=== PATIENT | male | born 1945 | race Caucasian/White ===

== ENCOUNTER 2017-02-08 06:36 | Day surgery (SDC) | payer MEDICARE ==
[2017-02-07 15:09] VITALS: BMI 25.4
[2017-02-08 08:15] LABS: #Basophils 0.1 thou/uL (0.0-0.2); #Eosinphils 0.5 thou/uL (0.0-0.7); #Lymphocytes 2.3 thou/uL (1.20-3.40); #Monocytes 1.4 thou/uL (0.11-0.59); #Neutrophils 6.3 thou/uL (1.40-6.50); %Basophils 1.3 % (0.0-1.0); %Eosinophils 4.6 % (0.0-10.0); %Lymphocytes 21.6 % (21.0-51.0); %Monocytes 12.9 % (0.0-10.0); Mean Platelet Volume 6.8 fL (7.4-10.4); Red Blood Cell (RBC) Count 4.93 mill/uL (4.70-6.10); White Blood Cell (WBC) Count 10.6 thou/uL (4.8-10.8)
[2017-02-08 08:22] LABS: Prothrombin Time 15.8 SEC (12.0-14.7)
[2017-02-08 08:23] LABS: PTT 36.1 SEC (22.9-36.1)
[2017-02-08] MEDS ORDERED: Diprivan 20 ML ONE (08:45)
[2017-02-08] MEDS ORDERED: Propofol 200 MG/20 ML VIAL ONE (09:01)
--- NOTE | 2017-02-08 17:51 | ECHO ---
DATE: 02/08/2017 INDICATION FOR PROCEDURE: This is a 71-year-old gentleman who is status post atrial fibrillation ab lation with pulmonary vein isolation. He has been taking Xarelto. He was advised to undergo a pearl sesophageal echocardiogram for evaluation of the flow in the left atrial appendage and also for any evidence of atrial abnormalities that might allow this gentleman be taken off of his oral anticoagul ation which has Xarelto. He was taken to the lab where he underwent short acting propofol anesthesia, the transesophageal pro be was easily passed down the distal esophagus. OVERALL IMPRESSION: 1. Normal left ventricular systolic function. Ejection fraction estimated at 55-60%. 2. Left atrial dilatation at 4.5 cm. 3. Moderate mitral valve regurgitation. 4. Mild tricuspid valve regurgitation. 5. Trace to mild aortic valve regurgitation. 6. Mild aortic valve sclerosis. 7. No evidence of left atrial or left atrial appendage thrombus and the E volume across the mitral valve was 0.63 meters per second velocity. The A velocity was 0.4 meters per second. The E:A ratio was 1.58. The left atrial appendage flow was 0.96 meters per second. The left atrial size 4.5 cm. There were no complications or difficulties encountered. IMPRESSION: Normal left ventricular systolic function with moderate mitral valve regurgitation, mil d tricuspid valve regurgitation, and good flow into the left atrial appendage with most likely suzan l left atrial contractility with moderate left atrial enlargement. POS: [facility]
--- NOTE | 2017-02-08 23:52 | DIS ---
He actually was seen as an outpatient on 02/08/2017 for the procedure. INDICATION FOR PROCEDURE: Admission to the outpatient facility was due to atrial fibrillation and h istory of pulmonary vein isolation ablation. He has done well since that time and he is being evalu ated to see whether or not his Xarelto can be discontinued. He was taken to the holding area where he underwent the procedure today. OTHER ADMITTING DIAGNOSES: Include hypertension, hypercholesterolemia. He has had a CVA in 04/2016 . He has glaucoma. He has had also chronic back problems. DISCHARGE DIAGNOSES: Include hypertension, hypercholesterolemia. He has had a CVA in 04/2016. He has glaucoma. He has had also chronic back problems. He remains in sinus rhythm. DISCHARGE MEDICATIONS: Same as the medications prior to the procedure. These include benazepril 20 mg q. day, Flonase inhaler or nasal spray each nostril once a day, latanoprost 0.005% ophthalmic dr ops, simvastatin 20 mg q.p.m., timolol ophthalmic drops 1 drop q. day, fish oil 1000 mg q. day, emily min D3 1000 units q. day, Xarelto 20 mg q. day, amlodipine 2.5 mg a day, metoprolol ER 25 mg q. day. It is quite possible when the patient sees the wraparound facilitator, they would stop his Xarelto. PROCEDURES IN HOSPITAL: Include a transesophageal echocardiogram. DISCHARGE FOLLOWUP: Follow up will be with me in about 4-6 weeks in the office. He will see as paty daniels followups with the wraparound facilitator. HOSPITAL COURSE: This is a very pleasant 71-year-old gentleman who underwent a pulmonary vein isola tion procedure for atrial fibrillation, has been doing well since that time. He has remained in sinu s rhythm. When he was seen in the office, he remained in sinus rhythm, somewhat bradycardic but in sinus rhythm. He has been followed by the wraparound facilitator and he was advised to undergo a trans esophageal echocardiogram to determine the flow in the left atrial appendage and also left atr ium as to determine whether or not he could possibly be taken off his oral anticoagulation in the fo rm of Xarelto. He did very well today during the procedure. His ejection fraction is normal. He d id have good flow in the left atrial appendage of 0.96 m/sec. The E:A ratio was 1.58 with an E velo city of 0.63 m/sec and the A velocity of 0.4 m/sec. At this time, most likely, he would be safe to discontinue the Xarelto, but I will leave this up to the discretion of the wraparound facilitator when they see the patient on their next visit. Otherwise, he tolerated the procedure well without diffic ulties or complications and he is ready for discharge today.
== END 2017-02-08 10:00 | disposition home or self-care (01) ==
LOC: CCL 06:36
PROVIDERS: ATTEND Internal Medicine Cardiovascular Disease
DX: I48.1 Persistent atrial fibrillation (principal); I10 Essential (primary) hypertension; E78.00 Pure hypercholesterolemia, unspecified; G89.29 Other chronic pain; Z88.8 Allergy status to other drugs, medicaments and biological substances; Z79.01 Long term (current) use of anticoagulants; Z96.643 Presence of artificial hip joint, bilateral; Z96.651 Presence of right artificial knee joint; Z86.73 Personal history of transient ischemic attack (TIA), and cerebral infarction without residual deficits
CPT/HCPCS: 85025; 85610; 85730; 93005; 93010; 93312; J2704

== ENCOUNTER 2017-10-30 12:03 | Inpatient (IN) | payer MEDICARE ==
[2017-10-30 14:05] LABS: Troponin I 0.011 ng/mL (< 0.028)
[2017-10-30 15:35] VITALS: BMI 23.8
[2017-10-30] MEDS ORDERED: hydrALAZINE 20 MG/ML VIAL SLOW IVP PRN (17:00)
[2017-10-30 19:59] LABS: Troponin I 0.029 ng/mL (< 0.028)
[2017-10-30] MEDS: Donepezil HCl 10 MG TAB PO SCH (21:22)
[2017-10-30] MEDS: Latanoprost 0.005% Ophth Soln 2.5 ml Bottle EA EYE SCH (21:22)
[2017-10-30] MEDS: Atorvastatin Calcium 10 MG TAB PO SCH (21:22)
[2017-10-30] MEDS: Brimonidine Tartrate 0.2% Ophth Soln 5 ml Bottle L EYE SCH (21:23)
[2017-10-30] MEDS: Timolol 0.25% Ophth Soln 5 ml Bottle L EYE SCH (21:23)
[2017-10-30] MEDS: Brimonidine Tartrate 0.2% Ophth Soln 5 ml Bottle R EYE SCH (21:24)
--- NOTE | 2017-10-31 00:21 | HP ---
DATE OF SERVICE: 10/30/2017 PRIMARY CARE PROVIDER: Dr. Lennon CHIEF COMPLAINT: "Heart rate in the 40s" HISTORY OF PRESENT ILLNESS: This is a 72-year-old male with history of dementia , hypertension, dyslipidemia, prior stroke in 2016, atrial fibrillation with history of ablation, generalized weakness, chronic hyponatremia, who presents to the emergency room due to a persistent heart rate in the 40s. All of the history is obtained from the patient's who reports she first noticed it on Tuesday, 2 days ago. Normally, his pulse is between 65 and 70. She stopped the metoprolol with his last dose three nights ago, and states that there has been no change in his heart rate which has remained in the 40s. No precipitating or relieving factors, and no prior history of bradycardia. The patient's only other medication change was the addition of Lexapro started on 10/21/2017, started for depression symptoms which include sleeping more, decreased appetite, and generally withdrawing. His notes that he has had some right facial drooping that is slight today, and some slurring of his speech yesterday. She has not noticed any other change in his behavior routine, states that he uses a walker and is generally weak and does not move around much. She has not seen any fevers, chills, nausea , vomiting, or change in voiding. The patient started out in [place], found to be in bradycardia with a rate in the 40s, transferred to the emergency room here and hospitalist called for admission. PAST MEDICAL HISTORY: 1. Atrial fibrillation with history of ablation. 2. History of stroke in 2016, with residual weakness. 3. Chronic hyponatremia. 4. Hypertension. 5. Dyslipidemia. 6. History of GI bleed, none recently, and has not been on aspirin since then. 7. Glaucoma and right eye blindness. PAST SURGICAL HISTORY: 1. Bilateral hip replacement. 2. Back surgery. 3. Right knee replacement. 4. Ablation. SOCIAL HISTORY: The patient lives with his , is his medical power of assistant city attorney and caregiver, he has not had alcohol in about 2 weeks and before that was having 3-4 beers per day. No tobacco. CODE STATUS: DNR - she confirms that he was clear on this wish. FAMILY HISTORY: Significant for cancer in multiple family members including breast cancer in mom. ALLERGIES: Are listed as ASPIRIN and patient's reports he was told this is an allergy and he should not take it. CURRENT MEDICATIONS: Reconciled with a list brought in by his ; 1. Metoprolol succinate 25 mg at bedtime. 2. Benazepril 20 mg daily. 3. Simvastatin 20 mg at bedtime. 4. Timolol 1 drop left eye b.i.d. 5. Brimonidine 1 drop each eye b.i.d. 6. Latanoprost 1 drop each eye at bedtime. 7. Donepezil 10 mg once a day. 8. Escitalopram 10 mg once a day. 9. Fish oil. 10. Vitamin D3. REVIEW OF SYSTEMS: From the patient, he reports "feeling yucky," but cannot describe it any further. He denies any pain. Denies any difference in his body. From his , she has not noticed any fevers, chills, nausea, vomiting or voiding changes. He occasionally does have incontinence of both bowel and bladder, states that is not new. Positive for change in appetite over the past 2 months, eating either not eating or 1-2 times per day. All remaining review of systems from the patient was attempted but uncertain of the reliability of the answers. PHYSICAL EXAMINATION: VITAL SIGNS: Blood pressure 164/84, pulse 48, respirations 14, saturations 96% on room air, temperature 98.6. GENERAL: He is awake, alert and responsive. He is not in apparent distress. HEENT: His right cornea is clouded. His left pupil is round. Extraocular movements are intact. Oral mucosa is pink, generally poor dentition. NECK: Supple, nontender. LYMPHATICS: No palpable cervical lymphadenopathy. VASCULAR: No audible carotid bruits. LUNGS: Clear to auscultation bilateral. No audible wheezing, rhonchi or rales. HEART: Normal S1, S2, regular rate and rhythm, no audible murmurs, he is bradycardic. ABDOMEN: Soft. Present bowel sounds. Nontender and nondistended. EXTREMITIES: No clubbing, cyanosis, or edema. SKIN: No visible rashes. NEUROLOGIC: Cranial nerves II-XII are intact. No facial droop noted by me, strength is equal and 5/5 in upper extremities and lower extremities. PSYCHIATRIC: Patient appears euthymic. He is oriented to person, but not to place, time or situation. LABORATORY DATA: 1. Reviewed. CBC, 7.6, 13.7, 41.2, 260. 2. Chemistry; 131, 4.5, 98, 23, 15, 0.74, 90. 3. Magnesium 2.7. 4. LFTs are normal except for a total bilirubin of 1.7. 5. Urinalysis 1.025, present protein, trace blood, but 0-3 red blood cells. 6. TSH 1.02. IMAGING DATA: 1. EKG shows a rate of 49, which appears junctional, possible very subtle sinus waves. 2. CT of the brain, stable atrophy and chronic white matter ischemic change without mass or bleed which is unchanged from 04/2016. IMPRESSION: 1. Bradycardia, uncertain if patient is symptomatic given the slurred speech and facial droop or if that is a separate issue. This is a new issue; patient has been off the beta caitie for now 3 days. 2. Speech change and facial droop as noticed by the patient's , with a history of stroke, history of atrial fibrillation, not on anticoagulation. 3. History of stroke with persistent weakness. 4. Chronic hyponatremia, appears stable. 5. Hypertension, not optimally controlled. 6. History of GI bleed, none recently, as well as reported ASPIRIN allergy. 7. Right eye blindness and glaucoma. 8. Elevated magnesium, uncertain significance, and mild. PLAN: 1. Admission to the hospital for Cardiology evaluation and monitoring of the heart rate off of beta caitie. 2. We will do a stroke workup for the patient with an MRI of the brain, to evaluate for infarct. The patient may require aspirin and discussed this with . We will see what the MRI shows. She is hesitant to start ASPIRIN given the report that he is allergic to this, from what I can best tell this was listed as an allergy due to a history of GI bleed. His reports he was on Xarelto for the atrial fibrillation, with his hse manager, Dr. Brock. This may need to be revisited based on his workup here. 3. We will continue his home medications with the exception of metoprolol, and we will hold the benazepril for now to allow for permissive hypertension in case of stroke. 4. We will consult the dietitian for recommendations on appetite. 5. Monitor sodium levels. 6. Deep venous thrombosis prophylaxis, pneumatic compression devices. 7. Gastrointestinal prophylaxis not indicated. The patient will be written for a diet. 8. Code status is DNR and this is confirmed with the patient's who states that he was very clear about this. 9. The duration of hospitalization will be dependent on Cardiology findings as well as the stroke workup. I reviewed the plan of care both with the patient and his . No questions or further needs at end of evaluation. Patient is at high risk given age, co- morbidities and current presentation. ERYN
[2017-10-31 05:21] LABS: Anion Gap 9 mmol/L (10-20); BUN (Urea Nitrogen) 12 mg/dL (8.4-25.7); Calc. Creatinine Clearance 120 mL/min (70-130); Calcium 8.5 mg/dL (7.8-10.44); Carbon Dioxide 26 mmol/L (23-31); Chloride 96 mmol/L (98-107); Cholesterol 108 mg/dl (< 200 Desired); Estimated GFR-MDRD Greater than 90; Glucose 84 mg/dL (83-110); HDL Cholesterol 36 mg/dL (>60 Neg Risk); LDL Cholesterol, Calculated 62 mg/dL; Potassium 4.1 mmol/L (3.5-5.1); Sodium 127 mmol/L (136-145); Triglycerides 48 mg/dL (Less than 150)
[2017-10-31] MEDS: Escitalopram Oxalate 10 mg Tablet PO SCH (09:19)
[2017-10-31] MEDS: Brimonidine Tartrate 0.2% Ophth Soln 5 ml Bottle L EYE SCH ×2 (09:20→20:09)
[2017-10-31] MEDS: Brimonidine Tartrate 0.2% Ophth Soln 5 ml Bottle R EYE SCH ×2 (09:20→20:10)
[2017-10-31] MEDS: Timolol 0.25% Ophth Soln 5 ml Bottle L EYE SCH ×2 (09:20→20:09)
--- NOTE | 2017-10-31 11:09 | PDOC.PN ---
- Subjective Encounter Start Date: 10/31/17 Encounter Start Time: 10:50 Subjective: f/u for ? symptomatic bradycardia and TIA r/o. Feels ok overall. Ambulated -: with PT using RW but felt weak. No CP, SOB. - Objective Resuscitation Status: Resuscitation Status DNR:Do Not Resuscitate MAR Reviewed: Yes Vital Signs & Weight: Vital Signs (12 hours) Temp Pulse Resp BP Pulse Ox 10/31/17 07:54 98 F 49 L 18 151/77 H 95 10/31/17 03:46 98 F 49 L 22 H 142/77 H 95 10/31/17 00:07 98.1 F 49 L 20 139/79 95 Weight Admit Weight 185 lb 12.8 oz Weight 185 lb 4.8 oz I&O: 10/30/17 10/31/17 11/01/17 06:59 06:59 06:59 Intake Total 670 Output Total 550 Balance 120 Result Diagrams: 10/31/17 04:35 Additional Labs: Laboratory Tests 04/20/16 04/21/16 10/30/17 08:54 05:21 10:17 Sodium 129 L 130 L 131 L Triglycerides Cholesterol LDL Cholesterol, Calc HDL Cholesterol 10/31/17 04:35 Sodium Triglycerides 48 Cholesterol 108 LDL Cholesterol, Calc 62 HDL Cholesterol 36 Radiology Reviewed by me: Yes (MRI brain - no acute changes) EKG Reviewed by me: Yes (Tele - Sinus bradycardia in low 50's) Phys Exam - Physical Examination Constitutional: NAD R cornea opacified HEENT: sclera anicteric, oral pharynx no lesions Neck: no nodes, no JVD, supple, full ROM Respiratory: no wheezing, no rales, no rhonchi, clear to auscultation bilateral S1, S2 Cardiovascular: RRR, no significant murmur, no rub, gallop Gastrointestinal: soft, non-tender, no distention, positive bowel sounds Musculoskeletal: no edema, pulses present Neurological: non-focal, normal sensation, moves all 4 limbs A x O x 1 to person Skin: no rash, normal turgor, cap refill <2 seconds Dx/Plan (1) Symptomatic bradycardia Code(s): R00.1 - BRADYCARDIA, UNSPECIFIED Status: Acute Comment: Suspected, plan for pacemaker insertion, continue telemetry monitoring, hold Metoprolol (2) Dysarthria Code(s): R47.1 - DYSARTHRIA AND ANARTHRIA Status: Acute Comment: ? chronic condition, MRI brain r/o acute CVA, follow clinically (3) Generalized weakness Code(s): R53.1 - WEAKNESS Status: Chronic Comment: PT for mobilization, ? home PT vs SNF (4) Chronic hyponatremia Code(s): E87.1 - HYPO-OSMOLALITY AND HYPONATREMIA Status: Chronic Comment: Appears near baseline levels, repeat Na+ in am (5) Atrial fibrillation, chronic Code(s): I48.2 - CHRONIC ATRIAL FIBRILLATION Status: Chronic Comment: Tele showing sinus bradycardia, s/p remote ablation (6) S/P ablation of atrial fibrillation Code(s): Z98.890 - OTHER SPECIFIED POSTPROCEDURAL STATES; Z86.79 - PERSONAL HISTORY OF OTHER DISEASES OF THE CIRCULATORY SYSTEM Status: Chronic - Plan plan discussed w/ family, PT/OT, social group worker, speech therapy, out of bed/ ambulate, DVT proph w/SCDs Stable overall -: Hold Metoprolol due to bradycardia -: Neurology consult pending -: Plan for Pacemaker insertion per Cardiology -: AM lab: BMP, CBC * Resume Zocor 20mg HS
--- NOTE | 2017-10-31 11:10 | CON ---
DATE OF CONSULTATION: 10/31/2017 HISTORY: Felipe Hoffman a 72-year-old white male who was initially evaluated by Dr. Brock in 10/2015. Prior to that, he had at least 3 episodes of syncope. EKG revealed atrial fibrillation. He was started on Xarelto. He had fast ventricular response and metoprolol 25 mg was added. He was placed on Multaq and in 12/2015 underwent transesophageal echo and cardioversion by Dr. Brock. There was no evidence of left atrial or left atrial appendage thrombus. Ejection fraction was 60-65%. With 200 joules, he returned to sinus rhythm. He had recurrence of his atrial fibrillation and on 04/15/2016 underwent ablation of his atrial fibrillation at [facility] by Dr. Ramírez Knox. Four days later he was admitted with mental status changes and elevated temperature. Brain MRI revealed an acute left cerebellar lacunar infarction. He had previously a Lexiscan Cardiolite test performed in the office. He had no evidence of reversible ischemia and normal wall motion. There was an area of decreased uptake in the inferoapical area felt to be due to diaphragmatic attenuation. In 05/2016 follow up in the office, he continued to remain in sinus rhythm. He has continued to maintain sinus rhythm and eventually underwent transesophageal echo in 01/[address] Brock to assess left atrial appendage flow. This was 0.96 meters per second, left atrial size of 4.5 cm. Ultimately, the decision was made to discontinue the Xarelto. That was the last time that he has been seen by Dr. Brock. He has been diagnosed with dementia according to the . He has not had any further falls or syncopal episodes. The monitors his heart rate very frequently and noted that it was in the low 40s and so she has held metoprolol for 3 days, but it continues to be in the low 40s at home. Also at times he will be complained of dizziness and lightheadedness. They came to the emergency room for further evaluation. He denied any chest discomfort or shortness of breath. PAST MEDICAL HISTORY: Hypertension, hypercholesterolemia, history of GI bleed on aspirin, glaucoma and right eye blindness, atrial fibrillation with ablation in 04/2016, a history of CVA 4 days after ablation with small left cerebellar lacunar infarct, dementia. OPERATIONS: Atrial fibrillation ablation, bilateral hip replacement, back surgery, right knee replacement. SOCIAL HISTORY: He does not smoke. He has several beers per day, but apparently has not had any in 2 weeks. FAMILY HISTORY: Negative for coronary artery disease. MEDICATIONS: At home include metoprolol 25 XL daily, which has been held for 3 days, benazepril 20 daily, Aricept 1 tablet daily, escitalopram oxalate 10 mg at bedtime, fish oil 1000 daily, simvastatin 20 at bedtime. ALLERGIES: ASPIRIN causes GI bleeding. It does not sound like he has a true aspirin allergy. REVIEW OF SYSTEMS: Twelve point review of systems otherwise unremarkable. PHYSICAL EXAMINATION: VITAL SIGNS: Blood pressure 151/77, pulse of 49. HEENT: PERRL. NECK: Supple. CHEST: Clear. CARDIAC: S1 and S2 are normal, without any S3, S4 or murmurs. Carotid upstrokes normal, without bruits. ABDOMEN: Normal bowel sounds, without tenderness or organomegaly. EXTREMITIES: Revealed no clubbing, cyanosis or edema. NEUROLOGIC: Grossly intact. LABORATORY DATA: EKG reveals probable junctional rhythm with heart rates in the mid 40s. This is in comparison with old EKGs that certainly show more of a distinct P wave than is present on current EKGs. Brain CT reveals stable atrophy and chronic white matter ischemic changes. Hemoglobin 13.7, hematocrit 41.2, white count 7600, platelets 260,000. INR 1.0. Sodium 127, potassium 4.1, chloride 96, carbon dioxide 26, BUN 12, creatinine 0.64. Troponin I has been normal except for the last one 0.029, cholesterol 108, triglycerides 48, HDL 36, LDL 62. TSH is normal. IMPRESSION: 1. Severe sinus bradycardia and possible junctional bradycardia at the present time. His states that he complains of dizziness frequently. 2. Slurred speech and facial droop, MRI will be performed this morning. 3. Status post atrial fibrillation ablation. He has not had documentation of any atrial fibrillation since ablation. 4. History of cerebrovascular accident 4 days after radiofrequency ablation with finding of left cerebellar lacunar infarct. 5. Hypertension. 6. Hypercholesterolemia, under good control. 7. History of gastrointestinal bleed on aspirin. 8. Right eye blindness. 9. Chronic hyponatremia. PLAN: The patient still has MRI pending. Echocardiogram has been performed. If he continues to have normal left ventricular function, it was recommended he undergo pacemaker placement. Risks of this were discussed with patient and his who has power of oil well fishing tool technician. Risks include , infection, bleeding, blood clot formation, pneumothorax, internal bleeding requiring surgical correction, reoperation for lead dislodgement, etc. They understand and are agreeable to proceed pending the results of the MRI. ERYN
--- NOTE | 2017-10-31 11:21 | MRI ---
BRAIN MRI NONCONTRAST: Date: 10/31/17 HISTORY: TIA. Reference made to head CT from previous day. FINDINGS: There is parenchymal atrophy and compensatory dilatation of the ventricular system. There is no evide nce of acute territorial infarction, mass effect, or midline shift. There is mild chronic microvascul ar ischemic disease. Patient motion degrades image quality and limits assessment. There is stable pos tprocedural deformity of the right globe. Skull base flow-voids are distorted by patient motion. No i ntracranial hemorrhagic susceptibility. IMPRESSION: 1. No acute territorial infarction or mass effect. 2. Parenchymal atrophy. 3. Mild chronic microvascular ischemic disease. POS: [facility]
[2017-10-31] MEDS ORDERED: CEFAZOLIN/Water 2 GM/20 ML SYRINGE ONE (11:55)
[2017-10-31] MEDS ORDERED: CEFAZOLIN 1 GM VIAL ONE (11:55)
[2017-10-31] MEDS ORDERED: Gentamicin 80 MG/2 ML VIAL ONE (11:55)
[2017-10-31] MEDS ORDERED: Lidocaine 1% (PF) 30 ML VIAL ONE ×3 (12:49→13:22)
[2017-10-31] MEDS ORDERED: Midazolam HCl 2 mg/2 ml Vial ONE (13:11)
[2017-10-31] MEDS ORDERED: Fentanyl 100 MCG/2 ML VIAL ONE (13:11)
[2017-10-31] MEDS ORDERED: Ondansetron HCl/PF 4 MG/2 ML Vial ONE (13:39)
[2017-10-31] MEDS: Cephalexin 250 MG CAP PO SCH ×2 (15:33→20:09)
[2017-10-31] MEDS: Acetaminophen 325 MG TAB PO PRN (15:33)
--- NOTE | 2017-10-31 16:09 | RAD ---
FRONTAL VIEW CHEST SERIES: INDICATIONS: Post cardiac pacing device placement. COMPARISON: 04/20/2016 FINDINGS: There is a left subclavian approach dual-lead cardiac pacing device. No obvious post procedure pneum othorax within limitations. There are extrinsic artifacts, limiting detail. The cardiomediastinal s ilhouette is prominent, accentuated by the portable technique and semiupright positioning. IMPRESSION: No evidence of a post procedure pneumothorax identified, within limitations. POS: [facility]
--- NOTE | 2017-10-31 16:18 | OP ---
CARDIOLOGY PROCEDURE NOTE: Date: 10/31/17 PROCEDURE: Permanent pacemaker placement. INDICATION: Dizziness, lightheadedness, heart rates of 42 and 45 per minute. In the manager lab , heart rates were as low as 32 per minute. DETAILS: Patient was brought to cardiac manager lab. The left subclavian area was prepped and draped. 1% lidocaine was infiltrated. A J-wire was placed into the left subclavian vein. Pacemaker pocket was manufactured using blunt and sharp dissection with electrocautery for hemostasis. Antibiotic solution soaked gauze was placed into the pocket. A 9 Malagasy sheath was then used over the J-wire and the ventricular lead was inserted and the J-wire remained in place, and the 9 Malagasy sheath was peeled away. A 7 Malagasy sheath was then inserted over the same J-wire and the atrial lead was inserted and the sheath was removed. The ventricular lead was advanced to the RV apex and screwed into the apex. The right atrial lead was screwed into the right atrium. Right ventricular lead: R-wave 12.4, impedance 885, threshold 0.3 volts. Atrial lead: P-wave 2.0, impedance 784, threshold 0.8. Both leads were paced at 10 volts without muscle or diaphragmatic stimulation. The tabs on the suture tie downs were removed and both leads were secured in place with two sutures of 0 silk. Leads were attached to pacemaker generator. The antibiotic solution soaked gauze was removed and the subcutaneous pocket was irrigated with copious amounts of antibiotic solution. The pacemaker was placed into the pocket and secured in place with one suture of 0 silk. Incision was then closed using two layers of running 3-0 Vicryl and one layer of running 4-0 Vicryl. Dermabond was placed on the incision. During the procedure, patient received Versed 1 mg x2 and fentanyl 25 mg x2. MTDD
[2017-10-31] MEDS: Latanoprost 0.005% Ophth Soln 2.5 ml Bottle EA EYE SCH (20:09)
[2017-10-31] MEDS: Atorvastatin Calcium 10 MG TAB PO SCH (20:09)
[2017-10-31] MEDS: Donepezil HCl 10 MG TAB PO SCH (20:09)
[2017-10-31] MEDS ORDERED: Latanoprost 0.005% Ophth Soln 2.5 ml Bottle EA EYE SCH (21:00)
[2017-10-31] MEDS ORDERED: Timolol 0.5% Ophth Soln 5 ml Bottle L EYE SCH (21:00)
[2017-10-31] MEDS ORDERED: Escitalopram Oxalate 10 mg Tablet PO SCH (21:00)
[2017-10-31] MEDS ORDERED: Brimonidine Tartrate 0.2% Ophth Soln 5 ml Bottle EA EYE SCH (21:00)
--- NOTE | 2017-10-31 22:28 | CON ---
DATE OF CONSULTATION: 10/31/2017 CONSULTING PHYSICIAN: Hospitalist Service. IMPRESSION: 1. Bradycardia related weakness and slurring. 2. History of atrial fibrillation, status post ablation. 2. History of a prior stroke in 2016. 3. Hypertension. 4. Hyperlipidemia. PLAN: Continue current medications as per Cardiology's recommendations. HISTORY OF PRESENT ILLNESS: Mr. Hoffman is a 72-year-old man with history of mild dementia and the above noted issues. He came in with complaints of some generalized weakness. His thought that there was some slurred speech. He was noted to have a pulse rate in the 40s. He was evaluated by Dr Fco Knott and has undergone pacemaker implantation. He had an MRI of the brain done on admission an d there was no evidence of any acute ischemic changes. He is without any complaints of slurred speec h, lateralized weakness or numbness. PAST MEDICAL HISTORY: As listed above. ALLERGIES: ASPIRIN. SOCIAL HISTORY: Lives with his who has his power of county attorney. He drinks about 3-4 beers per da y. Does not use any tobacco. CODE STATUS: DNR. FAMILY HISTORY: Noncontributory. MEDICATION LIST: Reviewed. REVIEW OF SYSTEMS: Otherwise, no complaints of chest pain, shortness of breath, headache, nausea, vo miting, or vertigo. PHYSICAL EXAMINATION: GENERAL: A reasonably well-nourished elderly man lying in bed in no distress. VITAL SIGNS: Blood pressure 164/84, pulse was 48, respirations 14, temperature 98.6. HEENT: The right cornea is of bit opaque. Oropharynx is clear. Cranium normocephalic and atraumati c. NECK: Supple, no lymphadenopathy noted. EXTREMITIES: No cyanosis noted. NEUROLOGIC: He was alert and cooperative. He followed commands appropriately. His speech is fluent and clear. Cranial nerves II-XII are intact. Motor exam showed antigravity strength without fix or drift. Cerebellar testing showed normal finger to nose and rapid alternating movements. Gait was n ot testable at this point. Abnormal movements were seen. Sensation was subjectively intact to light touch. MRI images were reviewed. EKG showed sinus bradycardia. LABORATORY STUDIES: Including a serum chemistry which showed a sodium of 127. His cardiac ratio was 3.0. SUMMARY: This is an elderly gentleman who presented with bradycardia and some generalized weakness a nd some questionable slurred speech. There is no evidence of any acute neurologic event. I agree wi th current treatment and will leave his disposition.
[2017-11-01] MEDS: Acetaminophen 325 MG TAB PO PRN (07:33)
[2017-11-01] MEDS: Escitalopram Oxalate 10 mg Tablet PO SCH (07:33)
[2017-11-01] MEDS: Brimonidine Tartrate 0.2% Ophth Soln 5 ml Bottle L EYE SCH (07:34)
[2017-11-01] MEDS: Brimonidine Tartrate 0.2% Ophth Soln 5 ml Bottle R EYE SCH (07:35)
[2017-11-01] MEDS: Timolol 0.25% Ophth Soln 5 ml Bottle L EYE SCH (07:35)
[2017-11-01] MEDS: Cephalexin 250 MG CAP PO SCH (08:36)
[2017-11-01] MEDS ORDERED: Donepezil HCl 10 MG TAB PO SCH (09:00)
[2017-11-01] MEDS ORDERED: Fish Oil 1,000 MG CAP PO SCH (09:00)
[2017-11-01] MEDS ORDERED: Fluticasone Propionate Nasal Spray 16 gm Bottle NASAL SCH (09:00)
[2017-11-01] MEDS ORDERED: Simvastatin 20 MG TAB PO SCH (09:00)
[2017-11-01 11:20] VITALS: TEMP 98.1
[2017-11-01 12:16] VITALS: BP 121/78
--- NOTE | 2017-11-01 12:49 | DIS ---
DATE OF ADMISSION: 10/30/2017 DATE OF DISCHARGE: 11/01/2017 DISCHARGE DIAGNOSES: 1. Symptomatic bradycardia, status post pacemaker placement on 10/31/2017. 2. Generalized weakness secondary to #1, improved. 3. Chronic hyponatremia, stable. 4. Chronic atrial fibrillation with current sinus bradycardia, now with atrial pacing. 5. Deconditioning. 6. Hypertension, stable. CONSULTATIONS: Dr. Knott with Cardiology Service. Dr. Reaves with Neurology Service. PERTINENT LABORATORY AND X-RAY FINDINGS: Sodium ranged between 127-131, creatinine 0.64. Troponin I ranged between 0.011-0.029, total cholesterol 108, triglycerides 48, HDL 36, LDL 62. CBC within [place] mal limits. CT of the brain without contrast dated 10/30/2017 showed chronic white matter ischemic c hanges without acute process. MRI of the brain without contrast dated 10/31/2017 showed no acute int racranial process. Parenchymal atrophy noted with mild chronic microvascular ischemic disease. A 2D transthoracic echocardiogram dated 10/31/2017 showed a technically limited exam. Ejection fraction of 55%-60%. Portable chest x-ray dated 10/31/2017 showed no evidence of pneumothorax status post elvira l lead pacemaker placement. HOSPITAL COURSE: The patient was initially admitted after presenting with generalized weakness with associated sinus bradycardia and likely symptomatic bradycardia. Initial concerns were related to po tential TIA/CVA with questionable dysarthria and lateralizing signs including extremity weakness. Th e patient underwent CT and MRI imaging of the brain showing no acute process or evidence of CVA. The patient was evaluated by the Neurology Service confirming the patient's symptoms consistent with sym ptomatic bradycardia and not an acute neurologic event. The patient was evaluated by the Cardiology service and deemed an appropriate candidate undergoing a dual-chamber pacemaker placement on 11/01/19 18. Telemetry monitoring showed atrial paced rhythm with heart rates in the 60s and patient symptoma tically improved after pacemaker insertion. Due to patient's overall deconditioned status, the patie nt was deemed an appropriate candidate for ongoing home health services including physical therapy af ter discharge. I have examined the patient at the time of discharge and discussed pertinent laborato ry findings and radiographic studies. The patient verbalizes understanding and agreement and ready f or discharge on 11/01/2017. DISCHARGE MEDICATIONS: 1. Benazepril 20 mg 1 tab p.o. daily. 2. Alphagan 0.2% 1 drop to each eye b.i.d. 3. Keflex 250 mg p.o. t.i.d. x5 days. 4. Vitamin D3 1000 units p.o. daily. 5. Aricept 10 mg p.o. daily. 6. Lexapro 10 mg p.o. at bedtime. 7. [place]is 3 fatty acids 1000 mg p.o. daily. 8. Flonase nasal spray 2 sprays in each naris daily. 9. Latanoprost 0.05% 1 drop to each eye at bedtime. 10. Toprol-XL 25 mg p.o. daily. 11. Simvastatin 20 mg p.o. daily. 12. Timolol maleate 1 drop to left eye b.i.d. FOLLOWUP: The patient will follow up with his primary care provider, Dr. Cuco Lennon within 7 days of discharge. The patient will follow up with Dr. Yoseph Knott with [facility] and to call his office for appointment time and date. CONDITION ON DISCHARGE: Stable. ACTIVITY: ad martin. Rolling walker for ambulation. DIET: Heart healthy. SPECIAL INSTRUCTIONS: Home health with physical therapy at discharge. CODE STATUS: Do not resuscitate. DISPOSITION: Home with home health services including physical therapy on 11/01/2017. Total time preparing in coordination discharge 32 minutes.
== END 2017-11-01 13:46 | disposition home health service (06) | DRG 243 ==
LOC: ERS 12:03 → 2SE 14:30
PROVIDERS: ADMIT Family Medicine; ATTEND Family Medicine
PROC: 0JH606Z Insertion of Pacemaker, Dual Chamber into Chest Subcutaneous Tissue and Fascia, Open Approach (ICD-10-PCS; principal; 2017-10-30)
PROC: 02H63JZ Insertion of Pacemaker Lead into Right Atrium, Percutaneous Approach (ICD-10-PCS; 2017-10-30)
PROC: 02HK3JZ Insertion of Pacemaker Lead into Right Ventricle, Percutaneous Approach (ICD-10-PCS; 2017-10-30)
DX: R00.1 Bradycardia, unspecified (principal); E87.1 Hypo-osmolality and hyponatremia; Z66 Do not resuscitate; I48.2 Chronic atrial fibrillation; F03.90 Unspecified dementia, unspecified severity, without behavioral disturbance, psychotic disturbance, mood disturbance, and anxiety; I10 Essential (primary) hypertension; H54.61 Unqualified visual loss, right eye, normal vision left eye; F32.9 Major depressive disorder, single episode, unspecified; E78.5 Hyperlipidemia, unspecified; I69.398 Other sequelae of cerebral infarction; R47.1 Dysarthria and anarthria
CPT/HCPCS: 33249; 36415; 70551; 71045; 80048; 80061; 93005; 93306; 99152; 99153; A4216; C1785; C1898; G8978-GP-CL; G8979-GP-CI; G8987-GO-CK; G8988-GO-CI; G8996-GN-CI; G8997-GN-CI; J0690; J1580; J2001; J2250; J2405; J3010